=== PATIENT | male | born 1995 | race Caucasian/White ===

== ENCOUNTER 2019-06-15 15:23 | Emergency (ER) | payer OTHER ==
[2019-06-15] MEDS ORDERED: HYDROmorphone INJ* 0.5 MG/0.5 ML SYRINGE IV ONE (15:45)
[2019-06-15] MEDS ORDERED: Ketorolac INJ* 30 MG/ML 1 ML VIAL IV PUSH ONE (15:45)
[2019-06-15] MEDS ORDERED: NS 0.9% 1000 ML** 1,000 ML IV ONE (15:45)
[2019-06-15] MEDS ORDERED: Tamsulosin CAP* 0.4 MG PO ONE (15:45)
[2019-06-15] MEDS ORDERED: Ondansetron INJ* 2 MG/ML VIAL IV ONE (15:46)
[2019-06-15] MEDS ORDERED: NS 0.9% 1000 ML** 2,000 ML IV ONE (15:46)
--- NOTE | 2019-06-15 15:53 | ED ---
GI/ HPI - HPI Summary HPI Summary: Patient is a 23 y/o M w/ Hx of kidney stones who presents to [facility] with complaints of right flank/RLQ pain. He states that his pain has been intermittent but continually worsening since onset. Patient experienced onset of N/V after his pain began. He additionally notes some pain to his pelvic area that he characterizes as a burning sensation as well as intermittent testicular pain. No testicular swelling is noted. Fever, chills, CP, SOB, cough, sore throat, hematuria are denied. Patient states that he has passed kidney stones previously without experiencing pain. He has not required stents or surgeries for past stones. Most recent kidney stone was last year. No Hx of abdominal surgeries, appendix is still present. He additionally states that he was scheduled for CT abd/pel on 06/26/19 for evaluation of a "spot on my right kidney ". The patient took Tylenol 1.5 hours [employer] without relief in Sx. Home medications and allergies are reviewed. - History of Current Complaint Chief Complaint: EDFlankPain Time Seen by Provider: 06/15/19 15:41 Stated Complaint: POSS KIDNEY STONES PER PT Hx Obtained From: Patient Onset/Duration: Still Present Timing: Intermittent Current Severity: Severe Pain Intensity: 7 Location of Pain: RLQ, Flank Additional Locations for Males: Testicles Pain Characteristics: Burning Associated Signs and Symptoms: Positive: Nausea, Vomiting, Flank Pain, Abdominal Pain, Other: - negative - SOB, sore throat. Negative: Fever, Hematuria, Chills, Cough, Chest Pain - Allergy/Home Medications Allergies/Adverse Reactions: Allergies Allergy/AdvReac Type Severity Reaction Status Date / Time No Known Allergies Allergy Verified 06/15/19 15:25 Home Medications: Home Medications Ibuprofen TAB* [Motrin TAB* 800 MG] 800 mg PO Q6H PRN #16 tab 06/15/19 [Rx] Ondansetron HCl [Zofran] 4 mg PO Q8HR #12 tablet 06/15/19 [Rx] Tamsulosin CAP* [Flomax CAP*] 0.4 mg PO DAILY #5 cap 06/15/19 [Rx] PMH/Surg Hx/FS Hx/Imm Hx History: Reports: Hx Kidney Stones Sensory History: Denies: Hx Legally Blind, Hx Deafness Opthamlomology History: Denies: Hx Legally Blind EENT History: Denies: Hx Deafness Infectious Disease History: No Infectious Disease History: Denies: Traveled Outside the [place] in Last 30 Days - Family History Known Family History: Negative: Seizure Disorder - Social History Alcohol Use: None Substance Use Type: Reports: None Smoking Status (MU): Never Smoked Tobacco Review of Systems Negative: Fever, Chills Negative: Sore Throat Negative: Chest Pain Negative: Shortness Of Breath, Cough Positive: Abdominal Pain, Vomiting, Nausea Positive: flank pain. Negative: hematuria All Other Systems Reviewed And Are Negative: Yes Physical Exam - Summary Physical Exam Summary: Constitutional: Well-developed, Well-nourished, Alert. (-) Distressed Skin: Warm, Dry HENT: Normocephalic; Atraumatic Eyes: Conjunctiva normal Neck: Musculoskeletal ROM normal neck. (-) JVD, (-) Stridor, (-) Tracheal deviation Cardio: Rhythm regular, rate normal, Heart sounds normal; Intact distal pulses; The pedal pulses are 2+ and symmetric. Radial pulses are 2+ and symmetric. (-) Murmur Pulmonary/Chest wall: Effort normal. (-) Respiratory distress, (-) Wheezes, (-) Rales Abd: Soft, Right flank and RLQ tenderness noted; (-) Distension, (-) Guarding, ( -) Rebound Musculoskeletal: (-) Edema Lymph: (-) Cervical adenopathy Neuro: Alert, Oriented x3 Psych: Mood and affect Normal Triage Information Reviewed: Yes Vital Signs On Initial Exam: Initial Vitals Temp Pulse Resp BP Pulse Ox 97 F 109 20 138/103 98 06/15/19 15:24 06/15/19 15:24 06/15/19 15:24 06/15/19 15:24 06/15/19 15:24 Vital Signs Reviewed: Yes Procedures - Sedation Patient Received Moderate/Deep Sedation with Procedure: No Diagnostics - Vital Signs Vital Signs Temp Pulse Resp BP Pulse Ox 06/15/19 15:24 97 F 109 20 138/103 98 - Laboratory Result Diagrams: 06/15/19 15:54 06/15/19 15:54 Lab Statement: Any lab studies that have been ordered have been reviewed, and results considered in the medical decision making process. - CT CT ABD/PEL CT Interpretation Completed By: Radiologist Summary of CT Findings: IMPRESSION: There is a 3 mm calculi in the distal right ureter with mild right hydroureter. and hydronephrosis present. Nonobstructing calculi lower pole left kidney. THIS REPORT WAS REVIEWED BY ED PHYSICIAN. Re-Evaluation - Re-Evaluation First Eval Re-Evaluation Time: 17:30 Comment: Results of workup so far discussed. Patient notes that he has a scheduled appointment with his urologist. UA pending. Second Eval Re-Evaluation Time: 17:55 Comment: UA discussed, patient to be discharged to home. GIGU Course/Dx - Course Course Of Treatment: Patient is a 23 y/o M w/ Hx of kidney stones who presents to [facility] with complaints of right flank/RLQ pain. He states that his pain has been intermittent but continually worsening since onset. Patient experienced onset of N/V after his pain began. He additionally notes some pain to his pelvic area that he characterizes as a burning sensation as well as intermittent testicular pain. No testicular swelling is noted. Fever, chills, CP , SOB, cough, sore throat, hematuria are denied. Patient states that he has passed kidney stones previously without experiencing pain. He has not required stents or surgeries for past stones. Most recent kidney stone was last year. No Hx of abdominal surgeries, appendix is still present. He additionally states that he was scheduled for CT abd/pel on 06/26/19 for evaluation of a "spot on my right kidney". On physical exam, moderate pain distress is noted, patient has tenderness over RLQ and right flank. Bloodwork was obtained and within normal limits with exception of Hct 40, MCH 34, creatinine 1.22, glucose 128. During ED course, patient received 3 L NS, Flomax 0.4 mg PO, Zofran 4 mg IV, Toradol 30 mg IV, and Dilaudid [address] ABD/PEL IMPRESSION: There is a 3 mm calculi in the distal right ureter with mild right hydroureter. and hydronephrosis present. Nonobstructing calculi lower pole left kidney. UA showed 1+ protein, trace ketones, ascorbic acid present. Results of workup discussed, patient discharged to home and will follow up with his urologist. He was prescribed Flomax, Motrin, and Zofran. - Diagnoses Provider Diagnoses: Right ureteral stone Discharge ED - Sign-Out/Discharge Documenting (check all that apply): Patient Departure - discharge - Discharge Plan Condition: Stable Disposition: HOME Prescriptions: Ibuprofen TAB* [Motrin TAB* 800 MG] 800 mg PO Q6H PRN #16 tab PRN Reason: Pain - Moderate Ondansetron HCl [Zofran] 4 mg PO Q8HR #12 tablet Tamsulosin CAP* [Flomax CAP*] 0.4 mg PO DAILY #5 cap Patient Education Materials: Ureteral Stones (ED) Referrals: [facility] [Outside] - 3 Days Additional Instructions: PLEASE RETURN TO ED FOR ANY NEW OR WORSENING SYMPTOMS. PLEASE FOLLOW UP WITH YOUR UROLOGIST. - Billing Disposition and Condition Condition: STABLE Disposition: Home - Attestation Statements Document Initiated by Scribe: Yes Documenting Scribe: WILLIAM STERLING Provider For Whom Scribe is Documenting (Include Credential): CHRISS YAN DO Scribe Attestation: WILLIAM Santos scribed for CHRISS YAN DO on 06/16/19 at 1211. Scribe Documentation Reviewed: Yes Provider Attestation: The documentation as recorded by the WILLIAM madera accurately reflects the service I personally performed and the decisions made by CHRISS peace DO Status of Scribe Document: Viewed
[2019-06-15 16:07] LABS: ABS Lymphocytes 1.4 10^3/ul (1.0-4.8); ABS Monocytes 0.3 10^3/ul (0-0.8); ABS Neutrophils 4.6 10^3/ul (1.5-7.7); Eosinophil % 0.3 %; Hematocrit 40 % (42-52); Hemoglobin 14.2 g/dL (14.0-18.0); Lymphocyte % 21.7 %; Mean Corpuscular HGB Conc 36 g/dL (31-36); Mean Corpuscular Hemoglobin 34 pg (27-31); Mean Corpuscular Volume 94 fL (80-94); Mean Platelet Volume 7.6 fL (7.4-10.4); Nucleated Red Blood Cells % 0.1; Platelet Count 240 10^3/uL (150-450); Red Blood Count 4.25 10^6 /uL (4.18-5.48); Red Cell Distribution Width 12 % (10-15); White Blood Count 6.3 10^3/uL (3.5-10.8)
[2019-06-15 16:21] LABS: Albumin 4.9 g/dL (3.2-5.2); Albumin/Globulin Ratio 1.8 (1-3); BUN/Creatinine Ratio 9.8 (8-20); Calcium 10.1 mg/dL (8.6-10.3); EGFR African American 87.6 (>60); EGFR Non-African American 72.4 (>60); Globulin 2.7 g/dL (2-4); Potassium 4.1 mmol/L (3.5-5.0); Total Bilirubin 0.9 mg/dL (0.2-1.0); Total Protein 7.6 g/dL (6.4-8.9)
[2019-06-15 17:49] LABS: Urine Appearance Turbid; Urine Bilirubin Negative (Negative); Urine Blood Negative (Negative); Urine Color Yellow; Urine Glucose Negative (Negative); Urine Ketones Trace (Negative); Urine Nitrite Negative (Negative); Urine Protein 1+(30 mg/dL) (Negative); Urine Specific Gravity 1.024 (1.010-1.030); Urine Urobilinogen Negative (Negative)
[2019-06-15 17:55] LABS: Urine Bacteria Absent (Absent); Urine Red Blood Cell Absent (Absent); Urine White Blood Cell Absent (Absent)
[2019-06-15 18:51] VITALS: BP 128/75
== END 2019-06-15 18:50 | disposition home or self-care (01) ==
LOC: ED 15:23
DX: N20.1 Calculus of ureter (principal); R11.2 Nausea with vomiting, unspecified; R10.84 Generalized abdominal pain; Z79.899 Other long term (current) drug therapy
CPT/HCPCS: 36415; 74176; 80053; 81003; 81015; 85025; 99283; J1170; J1885; J2405